=== PATIENT | female | born 1995 | race Two or more races ===

== ENCOUNTER 2018-08-15 20:22 | Emergency (ER) | payer OTHER ==
[~2018-08-15] VITALS: Ht 160 cm; Wt 99.3 kg
[2018-08-15 20:52] VITALS: Ht 160 cm; Wt 99.3 kg
[2018-08-15 21:27] LABS: CALCIUM 8.9 mg/dL (8.5-10.1); CARBON DIOXIDE 21.9 mmol/L (21-32); CHLORIDE SERUM 107 mmol/L (98-107); CREATININE SERUM 0.6 mg/dL (0.6-1.0); GFR1 > 60 mL/min; GLUCOSE SERUM 121 mg/dL (74-106); POTASSIUM SERUM 3.2 mmol/L (3.5-5.1); SODIUM SERUM 139 mmol/L (136-145)
[2018-08-15 21:32] LABS: ALKALINE PHOSPHATASE 100 U/L (46-116); ALT/SGPT 46 U/L (14-59); AST/SGOT 46 U/L (15-37); BILIRUBIN TOTAL 0.52 mg/dL (0.20-1.00); LIPASE 121 IU/L (73-393); TOTAL PROTEIN, SERUM 6.8 g/dL (6.4-8.2)
[2018-08-15 21:36] LABS: ALBUMIN 2.6 g/dL (3.4-5.0)
[2018-08-16 00:59] VITALS: BP 113/69
== END 2018-08-16 00:59 | disposition home or self-care (01) ==
LOC: ED 20:22
PROVIDERS: Emergency Medicine
DX: O99.613 Diseases of the digestive system complicating pregnancy, third trimester (principal); K80.20 Calculus of gallbladder without cholecystitis without obstruction; Z3A.30 30 weeks gestation of pregnancy
CPT/HCPCS: Q0092

== ENCOUNTER 2018-09-02 00:10 | Emergency (ER) | payer OTHER ==
[~2018-09-02] VITALS: Ht 160 cm; Wt 99.3 kg
[2018-09-02 00:12] VITALS: Ht 160 cm; Wt 99.3 kg
[2018-09-02 01:49] LABS: PLATELET COUNT 256 x10^3mcL (130-400); RED CELL DISTRIBUTION WIDTH 13.8 % (11.5-14.5)
[2018-09-02 01:58] LABS: CALCIUM 9.1 mg/dL (8.5-10.1); CARBON DIOXIDE 23.9 mmol/L (21-32); CHLORIDE SERUM 106 mmol/L (98-107); CREATININE SERUM 0.5 mg/dL (0.6-1.0); GFR1 > 60 mL/min; GLUCOSE SERUM 120 mg/dL (74-106); POTASSIUM SERUM 3.3 mmol/L (3.5-5.1); SODIUM SERUM 141 mmol/L (136-145)
[2018-09-02 02:02] LABS: ALKALINE PHOSPHATASE 97 U/L (46-116); ALT/SGPT 37 U/L (14-59); AST/SGOT 34 U/L (15-37); LIPASE 106 IU/L (73-393); TOTAL PROTEIN, SERUM 6.7 g/dL (6.4-8.2)
[2018-09-02 02:17] LABS: ALBUMIN 2.5 g/dL (3.4-5.0)
[2018-09-02 02:35] LABS: BASOPHIL % 0 % (0-2)
[2018-09-02 06:38] VITALS: BP 107/60
== END 2018-09-02 06:38 | disposition home or self-care (01) ==
LOC: ED 00:10
PROVIDERS: Emergency Medicine
DX: O99.613 Diseases of the digestive system complicating pregnancy, third trimester (principal); K80.20 Calculus of gallbladder without cholecystitis without obstruction; Z3A.32 32 weeks gestation of pregnancy
CPT/HCPCS: J2270; J2405; J2765; J7030; Q0092